=== PATIENT | male | born 1980 | race Caucasian/White ===

== ENCOUNTER 2023-01-25 16:57 | Emergency (ER) | payer OTHER ==
[~2023-01-25] VITALS: Ht 175.3 cm; Wt 77.1 kg
--- NOTE | 2023-01-25 16:57 | NUR ---
BIB FRIEND C/O L LEG PAIN, HEARD A POP IN HIS CALF WHILE PLAYING BASKETBALL PAIN 8/10 ON PAIN SCALE. PT VITLAS ARE WITHIN NORMAL LIMITS. AWAITING MD POLLOCK.
--- NOTE | 2023-01-25 17:25 | NUR ---
TO ER CHAIR 1, NO CHANGE IN CONDITION
--- NOTE | 2023-01-25 17:27 | NUR ---
TO ER CH2, AWAITING MD ORDERS
[2023-01-25] MEDS ORDERED: NAPR-1192 PO (18:32)
[2023-01-25 18:54] VITALS: BP 126/79
== END 2023-01-25 18:55 | disposition home or self-care (01) ==
LOC: ER 16:57
DX: S86.111A Strain of other muscle(s) and tendon(s) of posterior muscle group at lower leg level, right leg, initial encounter (principal); X58.XXXA Exposure to other specified factors, initial encounter; Y93.67 Activity, basketball; Y92.89 Other specified places as the place of occurrence of the external cause; Y99.8 Other external cause status
CPT/HCPCS: 73564-TC; 73590-TC; 73610-TC